=== PATIENT | female | born 1950 | race African-American/Black ===

== ENCOUNTER 2017-01-18 23:50 | Emergency (ER) | payer MEDICARE, OTHER ==
[2017-01-19 00:46] LABS: BASOPHILS 0.4 %; BASOPHILS ABSOLUTE 0.03 10/3/uL (0.0-0.16); EOSINOPHILS 2.1 %; EOSINOPHILS ABSOLUTE 0.17 10/3/uL (0.0-0.53); ER CBC TAT 0 Hrs 00 Mins; IMMATURE GRANULOCYTES 0.2 %; IMMATURE GRANULOCYTES ABSOLUTE 0.02 10/3/uL (0.0-0.11); LYMPHOCYTES 47.6 %; LYMPHOCYTES ABSOLUTE 3.92 10/3/uL (0.67-4.30); MEAN CORPUS HGB CONC 34.3 g/dL (32.0-36.0); MEAN CORPUSCULAR HEMOGLOB 31.1 pg (26.0-34.0); MEAN CORPUSCULAR VOLUME 90.6 fL (80-100); MONOCYTES 7.4 %; MONOCYTES ABSOLUTE 0.61 10/3/uL (0.21-1.20); NEUTROPHILS 42.3 %; NEUTROPHILS ABSOLUTE 3.48 10/3/uL (2.02-8.40); PLATELET COUNT 308 10/3/uL (150-400); RBC DISTRIBUTION WIDTH 13.2 % (12.0-16.0); WHITE BLOOD CELLS 8.2 10/3/uL (4.5-10.5)
[2017-01-19 00:47] LABS: HEMATOCRIT 40.5 % (36.0-48.0); HEMOGLOBIN 13.9 g/dL (12.0-16.0); MANUAL DIFF NO %; RED CELL COUNT 4.47 10/6/uL (4.0-5.6)
[2017-01-19 01:02] LABS: INTERNATIONAL NORMAL RATI 1.1 UNITS (-); PARTIAL THROMBO TIME 35.8 SEC (22.5-37.2)
[2017-01-19 01:03] LABS: BUN (BLOOD UREA NITROGEN) 10 MG/DL (6-23); CALCIUM, SERUM 9.1 MG/DL (8.5-10.4); CHEST PAIN PROFILE TAT 0 Hrs 21 Mins; CHLORIDE, SERUM 107 MMOL/L (96-112); CO2 (CARBON DIOXIDE) 29 MMOL/L (24-34); CREATININE 0.87 MG/DL (0.55-1.02); GFR AFRICAN AMERICAN 80 ML/MIN (>=60); GFR NON AFRICAN AMERICAN 69 ML/MIN (>=60); GLUCOSE, SERUM 84 MG/DL (60-99); POTASSIUM, SERUM 3.6 MMOL/L (3.5-5.3); SODIUM, SERUM 142 MMOL/L (135-148); TROPONIN I <0.02 NG/ML (<0.05)
[2017-01-19 01:04] LABS: PROTIME (NOT ORD) 14.1 SEC (12.0-14.5)
[2017-03-16] MEDS ORDERED: MULTI-VIT/F1 PO ×2 (14:15→14:16)
[2017-03-16] MEDS ORDERED: SPIRO25 PO (14:22)
[2017-03-16] MEDS ORDERED: SINGULAIR1 PO (14:22)
[2017-03-16] MEDS ORDERED: VALTREX5 PO (14:23)
[2017-03-16] MEDS ORDERED: PRILO PO (14:23)
[2017-03-16] MEDS ORDERED: ALLEGRA180 PO (14:24)
== END 2017-01-19 02:30 | disposition home or self-care (01) ==
LOC: ER 23:50
PROVIDERS: Specialist
DX: K21.9 Gastro-esophageal reflux disease without esophagitis (principal); R51 Headache; I10 Essential (primary) hypertension; J45.909 Unspecified asthma, uncomplicated; E11.9 Type 2 diabetes mellitus without complications; Z96.653 Presence of artificial knee joint, bilateral
CPT/HCPCS: 71020; 80048; 83735; 84484; 85025; 85610; 85730; 93005; 99284; A9270-GY

== ENCOUNTER 2017-03-21 06:00 | Day surgery (SDC) | payer MEDICARE, OTHER ==
[2017-03-14 09:46] LABS: BASOPHILS 0.4 %; BASOPHILS ABSOLUTE 0.03 10/3/uL (0.0-0.16); EOSINOPHILS 1.3 %; EOSINOPHILS ABSOLUTE 0.09 10/3/uL (0.0-0.53); HEMATOCRIT 40.4 % (36.0-48.0); HEMOGLOBIN 13.7 g/dL (12.0-16.0); IMMATURE GRANULOCYTES 0.1 %; IMMATURE GRANULOCYTES ABSOLUTE 0.01 10/3/uL (0.0-0.11); LYMPHOCYTES 47.2 %; LYMPHOCYTES ABSOLUTE 3.23 10/3/uL (0.67-4.30); MEAN CORPUS HGB CONC 33.9 g/dL (32.0-36.0); MEAN CORPUSCULAR HEMOGLOB 31.2 pg (26.0-34.0); MEAN PLATELET VOLUME 9.9 fL (9.2-13.0); MONOCYTES ABSOLUTE 0.55 10/3/uL (0.21-1.20); NEUTROPHILS ABSOLUTE 2.94 10/3/uL (2.02-8.40); PLATELET COUNT 295 10/3/uL (150-400); RBC DISTRIBUTION WIDTH 13.7 % (12.0-16.0); RED CELL COUNT 4.39 10/6/uL (4.0-5.6); WHITE BLOOD CELLS 6.9 10/3/uL (4.5-10.5)
[2017-03-14 09:49] LABS: MANUAL DIFF NO %
[2017-03-14 10:08] LABS: BUN (BLOOD UREA NITROGEN) 12 MG/DL (6-23); CALCIUM, SERUM 9.7 MG/DL (8.5-10.4); CHLORIDE, SERUM 107 MMOL/L (96-112); CO2 (CARBON DIOXIDE) 25 MMOL/L (24-34); CREATININE 0.87 MG/DL (0.55-1.02); GFR AFRICAN AMERICAN 80 ML/MIN (>=60); GFR NON AFRICAN AMERICAN 69 ML/MIN (>=60); GLUCOSE, SERUM 111 MG/DL (60-99); SODIUM, SERUM 143 MMOL/L (135-148)
--- NOTE | ~2017-03-21 | OP ---
Record Of Operation [facility] [address] [place]. [address] NAME: REX LAU : 48 [place] [facility] [facility] [place] [id number] AGE: 66 ADM/REG DATE : 03/21/17 MR#: [id number] REPORT SERV DATE: 03/21/17 DICTATED BY: LIGIA LEIGH DATE: 03/21/17 REPORT STATUS : Draft TRANSCRIBED BY: MODBrooke DATE: 03/21/17 DATE OF PROCEDURE: 03/21/2017 SERVICE: Otolaryngology. PREOPERATIVE DIAGNOSIS: Bilateral chronic sphenoid sinusitis. POSTOPERATIVE DIAGNOSIS: Bilateral chronic sphenoid sinusitis. PROCEDURE: 1. Right endoscopic sphenoidotomy with removal of contents. 2. Left endoscopic sphenoidotomy. ANESTHESIA: General endotracheal anesthesia. COMPLICATIONS: None. SPECIMENS: Right sphenoid sinus contents. FINDINGS: The patient had an impacted fungal ball in the right sphenoid sinus. Left sphenoid sinus was widely opened. STATEMENT OF MEDICAL NECESSITY: This is a 66-year-old female, referred for chronic and recurrent headaches. CT scan showed impacted right sphenoid sinus. She was treated with antibiotic and steroids in the standard fashion, did not improve, so I recommended the above procedures. STATEMENT OF OPERATION: The patient was brought to the operating room in supine position and transferred over to the operating room table. All pressure points were padded and general endotracheal anesthesia was established. The nose was prepared with 4% cocaine-soaked pledgets. The pledgets were removed. After the patient was draped out for sinus surgery starting on the right-hand side, the middle turbinate was gently lateralized and injections were performed on the middle turbinate and the face of the sphenoid and the septum bilaterally. Next, on the left-hand side, the [employer] Relieva balloon system was used to cannulate the left sphenoid sinus. The natural ostium was dilated to 12 atmospheres for 3 seconds and removed. On the right-hand side, I had some difficulty finding the natural os. The sinus was also very small, so at that point, I decided to glycerin supervisor the image guidance system, [email or web address] system. This was done and calibrated successfully. Once I did this, I was able to successfully enter the natural ostium. I opened it widely with a Kerrison rongeur and I removed the superior turbinate completely. Immediately upon entering, I saw the impaction. The impaction was removed with a J curette and irrigation. I opened the sphenoid sinus all the way to the roof, base of skull, and laterally all the way to the lamina papyracea. I was able to see with angled scopes throughout the sinus and completely flushed and removed all contents. Afrin-soaked pledgets were then used for hemostasis. The patient was turned back over to Anesthesia. The pledgets were removed. Her stomach and oropharynx were suctioned free of blood and fluid. She was extubated and Record Of Operation [place] [id number] [facility] [place]. [address] NAME: REX LAU : 48 [place] [facility] [place] [facility] [place] [id number] AGE: 66 ADM/REG DATE : 03/21/17 MR#: [id number] REPORT SERV DATE: 03/21/17 DICTATED BY: LIGIA LEIGH DATE: 03/21/17 REPORT STATUS : Draft TRANSCRIBED BY: NIK DATE: 03/21/17 transferred to the PACU in stable condition. PS/NIK Ligia Leigh MD / [id number] CC: MD Emilie Booth M.D.
[~2017-03-21 06:00] MED LIST: ALLEGRA180 PO; MULTI-VIT/F1 PO; PRILO PO; SINGULAIR1 PO; SPIRO25 PO; VALTREX5 PO
== END 2017-03-21 12:48 | disposition home or self-care (01) ==
LOC: SDC 06:00
PROVIDERS: Otolaryngology
PROC: 099X4ZZ Drainage of Left Sphenoid Sinus, Percutaneous Endoscopic Approach (ICD-10-PCS; 2017-03-21)
PROC: 099W4ZZ Drainage of Right Sphenoid Sinus, Percutaneous Endoscopic Approach (ICD-10-PCS; principal; 2017-03-21 07:15)
DX: J32.3 Chronic sphenoidal sinusitis (principal); K21.9 Gastro-esophageal reflux disease without esophagitis; E11.9 Type 2 diabetes mellitus without complications; J45.909 Unspecified asthma, uncomplicated; I10 Essential (primary) hypertension; Z86.73 Personal history of transient ischemic attack (TIA), and cerebral infarction without residual deficits; Z90.49 Acquired absence of other specified parts of digestive tract; Z98.890 Other specified postprocedural states
CPT/HCPCS: 80048; 82962; 85025; 88305; 88312; 93005; A9270-GY; C1725; C1726; J2250; J2405; J2710; J3010